=== PATIENT | female | born 1975 | race Caucasian/White ===

== ENCOUNTER → 2021-02-09 | Outpatient (CLI) | payer OTHER | LOC: M.RAD 10:05 | PROVIDERS: ATTEND Nurse Practitioner Family | DX: Z12.31 Encounter for screening mammogram for malignant neoplasm of breast (principal); N64.89 Other specified disorders of breast ==

== ENCOUNTER 2021-04-22 20:09 | Emergency (ER) | payer OTHER ==
[~2021-04-22] VITALS: Ht 167.6 cm; Wt 127.0 kg
[2021-04-22] MEDS ORDERED: BUPROPION XL300 MG PO (20:13)
[2021-04-22] MEDS ORDERED: MEDROLDOSEPACK PO (20:49)
[2021-04-22 20:52] VITALS: BP 104/60
== END 2021-04-22 20:53 | disposition home or self-care (01) ==
LOC: M.ERS 20:09
DX: S40.862A Insect bite (nonvenomous) of left upper arm, initial encounter (principal); S00.86XA Insect bite (nonvenomous) of other part of head, initial encounter; S40.861A Insect bite (nonvenomous) of right upper arm, initial encounter; Z90.49 Acquired absence of other specified parts of digestive tract; Z88.2 Allergy status to sulfonamides; W57.XXXA Bitten or stung by nonvenomous insect and other nonvenomous arthropods, initial encounter; Y93.89 Activity, other specified; Y92.89 Other specified places as the place of occurrence of the external cause; Y99.8 Other external cause status